=== PATIENT | male | born 1975 | race Caucasian/White ===

== ENCOUNTER 2022-10-19 09:59 | Outpatient (CLI) | payer OTHER | END 2022-10-19 10:00 | disposition home or self-care (01) | LOC: CSHWCC 09:59 | PROVIDERS: ATTEND Nurse Practitioner Family | DX: L97.312 Non-pressure chronic ulcer of right ankle with fat layer exposed (principal); R60.0 Localized edema | CPT/HCPCS: 29581; 87070; 87077; 87186; 87205; 99204; G0463 ==

== ENCOUNTER 2022-10-26 11:29 | Outpatient (CLI) | payer OTHER, SELFPAY | END 2022-10-26 11:30 | disposition home or self-care (01) | LOC: CSHWCC 11:29 | PROVIDERS: ATTEND Nurse Practitioner Family | DX: L97.312 Non-pressure chronic ulcer of right ankle with fat layer exposed (principal); R60.0 Localized edema ==

== ENCOUNTER 2022-11-09 10:55 | Outpatient (CLI) | payer SELFPAY | END 2022-11-09 10:56 | disposition home or self-care (01) | LOC: CSHWCC 10:55 | PROVIDERS: ATTEND Nurse Practitioner Family | DX: L97.312 Non-pressure chronic ulcer of right ankle with fat layer exposed (principal); R60.0 Localized edema | CPT/HCPCS: 11042; 97607 ==

== ENCOUNTER 2022-11-16 10:29 | Outpatient (CLI) | payer SELFPAY | END 2022-11-16 10:30 | disposition home or self-care (01) | LOC: CSHWCC 10:29 | PROVIDERS: ATTEND Nurse Practitioner Family | DX: L97.312 Non-pressure chronic ulcer of right ankle with fat layer exposed (principal); R60.0 Localized edema ==

== ENCOUNTER 2022-11-24 12:49 | Outpatient (CLI) | payer SELFPAY | END 2022-11-24 12:50 | disposition home or self-care (01) | LOC: CSHWCC 12:49 | PROVIDERS: ATTEND Nurse Practitioner Family | DX: L97.312 Non-pressure chronic ulcer of right ankle with fat layer exposed (principal); R60.0 Localized edema | CPT/HCPCS: 97607 ==

== ENCOUNTER 2024-05-07 09:18 | Outpatient (CLI) | payer OTHER | END 2024-05-07 09:19 | disposition home or self-care (01) | LOC: CSHWCC 09:18 | PROVIDERS: ATTEND Nurse Practitioner Family | DX: I87.311 Chronic venous hypertension (idiopathic) with ulcer of right lower extremity (principal); L97.212 Non-pressure chronic ulcer of right calf with fat layer exposed | CPT/HCPCS: 11042 ==

== ENCOUNTER 2024-05-13 14:05 | Outpatient (CLI) | payer OTHER | END 2024-05-13 14:06 | disposition home or self-care (01) | LOC: CSHWCC 14:05 | PROVIDERS: ATTEND Nurse Practitioner Family | DX: I87.311 Chronic venous hypertension (idiopathic) with ulcer of right lower extremity (principal); L97.212 Non-pressure chronic ulcer of right calf with fat layer exposed | CPT/HCPCS: 11042 ==

== ENCOUNTER 2024-06-10 15:47 | Outpatient (CLI) | payer OTHER | END 2024-06-10 15:48 | disposition home or self-care (01) | LOC: CSHWCC 15:47 | PROVIDERS: ATTEND Nurse Practitioner Family | DX: I87.311 Chronic venous hypertension (idiopathic) with ulcer of right lower extremity (principal); L97.212 Non-pressure chronic ulcer of right calf with fat layer exposed | CPT/HCPCS: 11042; 87070; 87205; 99213; G0463 ==